=== PATIENT | female | born 1965 | race African-American/Black ===

== ENCOUNTER 2018-09-23 10:18 | Inpatient (IN) | payer OTHER ==
--- NOTE | 2018-09-20 12:59 | Diagnostic Imaging Report ---
EXAM: XR CHEST 2 VIEWS DATE: 09/20/2018 12:35 PM INDICATION: Preoperative, left renal mass COMPARISON: None FINDINGS: Lines and Tubes: None Heart and Mediastinum: No acute cardiomediastinal findings. Lungs and Pleura: No significant pleural effusion, pneumothorax, or focal consolidation. Bones and Soft Tissues: No acute findings. IMPRESSION: 1. No acute cardiopulmonary findings. Signed by: Dr. Amadou Terry MD on 09/20/2018 12:56 PM
[2018-09-20 13:07] LABS: BASOPHILS # (AUTO) 0.1 (0.0-0.1); EOSINOPHILS # (AUTO) 0.5 (0.0-0.4); EOSINOPHILS % 7.4 % (0.0-6.0); HEMOGLOBIN 13.4 g/dL (12.0-16.0); LYMPHOCYTES # (AUTO) 2.2 (1.0-3.2); LYMPHOCYTES % 30.8 % (18.0-39.1); MEAN CORPUSCULAR HEMOGLOBIN 30.7 pg (28-32); MEAN CORPUSCULAR HGB CONC 32.7 g/dL (31-35); MEAN CORPUSCULAR VOLUME 93.8 fL (81-99); MONOCYTES # (AUTO) 0.7 (0.2-0.8); MONOCYTES % 9.2 % (4.4-11.3); NEUTROPHILS # (AUTO) 3.6 (2.1-6.9); NEUTROPHILS % 51.3 % (38.7-80.0); PLATELET COUNT 287 x10e3/uL (140-360); RED BLOOD COUNT 4.37 x10e6/uL (3.6-5.1); RED CELL DISTRIBUTION WIDTH 13.9 % (11.7-14.4)
[2018-09-20 13:48] LABS: ALANINE AMINOTRANSFERASE 15 IU/L (0-55); ALBUMIN 3.7 g/dL (3.5-5.0); ALKALINE PHOSPHATASE 90 IU/L (40-150); ANION GAP 12.1 mmol/L (8-16); BLOOD UREA NITROGEN 18 mg/dL (7-26); BUN/CREATININE RATIO 20 (6-25); CALCIUM 9.4 mg/dL (8.4-10.2); CARBON DIOXIDE 27 mmol/L (22-29); CHLORIDE 105 mmol/L (98-107); CREATININE, SERUM 0.91 mg/dL (0.57-1.11); EST GLOMERULAR FILTRATION RATE > 60 ML/MIN (60-); GLUCOSE 87 mg/dL (74-118); POTASSIUM 4.1 mmol/L (3.5-5.1); SODIUM 140 mmol/L (136-145)
[~2018-09-23] VITALS: Ht 172.7 cm; Wt 87.6 kg
--- OUTSIDE RECORDS SUMMARY | 2018-09-23 10:21 | XMS REPORT ---
Author Author [facility] Address Unknown Phone Unavailable Care Team Providers Care Sql Server Consultant Name Role Phone JOHN LEDEZMA Unavailable Unavailable Problems This patient has no known problems. Allergies, Adverse Reactions, Alerts This patient has no known allergies or adverse reactions. Medications This patient has no known medications. Results Test Description Test Time Test Comments Text Results Atomic Results Result Comments CHEST 2 VIEWS 2018-09-20 12:55:00 [facility] [address] [place] [address] Patient Name: MAULIK OZUNA MR #: [id number] : 1965 Age/Sex: 53/F Req #: [id number] Adm Physician: Ordered by: JOHN LEDEZMA MD Report #: [id number] Location: OR Room/Bed: Procedure: [id number] DX/CHEST 2 VIEWS Exam Date: 09/20/18 Exam Time: 1235 REPORT STATUS: Signed EXAM: XR CHEST 2 VIEWS DATE: 09/20/2018 12:35 PM INDICATION: Preoperative, left renal mass COMPARISON: None FINDINGS: Lines and Tubes: None Heart and Mediastinum: No acute cardiomediastinal findings. Lungs and Pleura: No significant pleural effusion, pneumothorax, or focal consolidation. Bones and Soft Tissues: No acute findings. IMPRESSION: 1. No acute cardiopulmonary findings. Signed by: Dr. Amadou Martell MD on 09/20/2018 12:56 PM Dictated By: AMADOU MARTELL MD [id number] Transcribed By: TEX on 09/20/18 1256 COPY TO: JOHN LEDEZMA MD
[2018-09-23] MEDS ORDERED: CEFAZOLIN SOD 1 GM/D5W 50ML 50 ML IV ONE (10:40)
[2018-09-23] MEDS ORDERED: ROCURONIUM BROMIDE 10 MG/ML 5ML VIAL ONE (14:23)
[2018-09-23] MEDS ORDERED: LIDOCAINE HCL 2% LOCAL INJ 5 ML SDV VIAL INJ ONE (14:23)
[2018-09-23] MEDS ORDERED: SEVOFLURANE INHAL SOLN 250 ML PEN BTL ONE (14:23)
[2018-09-23] MEDS ORDERED: ONDANSETRON HCL INJ 2 MG/ML VIAL ONE (14:23)
[2018-09-23] MEDS ORDERED: DEXAMETHASONE SOD PHOS INJ 4 MG/ML VIAL ONE (14:23)
[2018-09-23] MEDS ORDERED: PROPOFOL IV EMULSION 10 MG/ML 20 ML VIAL ONE (14:23)
[2018-09-23] MEDS ORDERED: ACETAMINOPHEN 1000 MG/100 ML IV ONE (14:23)
[2018-09-23] MEDS ORDERED: ACETAMINOPHEN 1000 MG/100 ML IV PRN (15:30)
[2018-09-23] MEDS ORDERED: MORPHINE SULFATE 1 MG/ML 30ML PCA IV PRN (15:30)
[2018-09-23] MEDS ORDERED: DIPHENHYDRAMINE HCL INJ 50 MG/ML VIAL IM PRN (15:30)
[2018-09-23] MEDS ORDERED: NALOXONE HCL INJ 0.4 MG/ML AMP IV PRN (15:30)
[2018-09-23] MEDS ORDERED: FENTANYL CITRATE/PF 100MCG/2 ML INJ ONE (16:10)
--- NOTE | 2018-09-23 16:22 | Diagnostic Imaging Report ---
EXAM: XR CHEST 2 VIEWS DATE: 09/23/2018 3:21 PM INDICATION: Left renal mass. Rule out pneumothorax. COMPARISON: 09/20/2018. FINDINGS: Lines and Tubes: Left thoracostomy tube with its tip projected on the left apex. Heart and Mediastinum: The cardiac silhouette is mildly enlarged. Mild prominence of the pulmonary hilum bilaterally; these findings may be part related to suboptimal inflation, however, cannot exclude mild pulmonary venous congestion.. Bibasilar subsegmental atelectasis. Lungs and Pleura: Mild lucency in the left apex is nonspecific, however, could represent a tiny apical pneumothorax. Small left pleural effusion. No focal consolidation. Bones and Soft Tissues: No acute findings. IMPRESSION: 1. Questionable tiny left apical pneumothorax. Recommend attention on future follow-up. 2. Small left pleural effusion and bibasilar subsegmental atelectasis. 3. Mild pulmonary venous congestion. Signed by: Dr. Raymundo De Leon M.D. on 09/23/2018 4:19 PM
[2018-09-23] MEDS ORDERED: MORPHINE SULFATE 1 MG/ML 30ML PCA ONE (16:33)
[2018-09-23] MEDS ORDERED: MORPHINE SULFATE INJ 4 MG/ML INJ ONE (17:38)
[2018-09-23 18:27] VITALS: BP 134/92
[2018-09-23 18:31] VITALS: BP 134/92
--- NOTE | 2018-09-23 19:20 | NUR ---
RECEIVED REPORT FROM GARY PULIDO, AT PT'S BEDSIDE, PT RESTING WELL WITH EYES CLOSED, BREATHING EVEN AND UNLABORED, PT'S DAUGHTER AT BEDSIDE ON PHONE HOWEVER, ASK QUESTIONS REGARDING WHEN WILL PHYSICIANS ARRIVE AND MAKE THERE ROUNDS, INFORMED HER UNSURE HOWEVER SOMEONE FROM FAMILY CAN TAKE TURNS STAYING WITH PT, DAUGHTER STATES THAT WILL BE OK.
--- NOTE | 2018-09-23 19:20 | NUR ---
RECEIVED REPORT FROM GARY PULIDO AT PT'S BEDSIDE. DAUGHTER AWAKE IN ROOM ON PHONE HOWEVER DOES ASK QUESTIONS REGARDING WHEN DOES DR'S ARRIVE IN THE MORNING. INFORMED PT UNAWARE
[2018-09-23 19:47] VITALS: BP 122/74
[2018-09-23 20:00] VITALS: BP 122/74
[2018-09-23] MEDS: CEFAZOLIN SOD 1 GM/D5W 50ML 50 ML IV SCH (20:47)
[2018-09-23] MEDS: D5.45%NS/KCL 20MEQ 1,000 ML IV SCH (20:48)
[2018-09-23] MEDS: SODIUM CHLORIDE 0.9% 250ML IRRIG IR SCH (20:48)
[2018-09-24] VITALS (18 sets, daily range): BP systolic 92–120; BP diastolic 60–82
[2018-09-24] MEDS: SODIUM CHLORIDE 0.9% 250ML IRRIG IR SCH ×7 (00:35→22:00)
--- NOTE | 2018-09-24 02:00 | NUR ---
REPOSITIONING PT DURING THE NIGHT, SISTER AT BEDSIDE. NO QUESTIONS OR CONCERNS ASKED.
[2018-09-24] MEDS: CEFAZOLIN SOD 1 GM/D5W 50ML 50 ML IV SCH ×3 (04:13→20:52)
[2018-09-24] MEDS ORDERED: LACTATED RINGER'S 1,000 ML ONE (05:16)
[2018-09-24 05:22] LABS: BASOPHILS % 0.1 % (0.0-1.0); EOSINOPHILS % 0.2 % (0.0-6.0); HEMOGLOBIN 11.3 g/dL (12.0-16.0); LYMPHOCYTES # (AUTO) 1.3 (1.0-3.2); LYMPHOCYTES % 12.5 % (18.0-39.1); MEAN CORPUSCULAR HEMOGLOBIN 30.5 pg (28-32); MEAN CORPUSCULAR HGB CONC 32.3 g/dL (31-35); MEAN CORPUSCULAR VOLUME 94.3 fL (81-99); MONOCYTES % 9.2 % (4.4-11.3); NEUTROPHILS % 77.6 % (38.7-80.0); PLATELET COUNT 234 x10e3/uL (140-360); RED BLOOD COUNT 3.71 x10e6/uL (3.6-5.1); RED CELL DISTRIBUTION WIDTH 13.8 % (11.7-14.4)
[2018-09-24] MEDS: D5.45%NS/KCL 20MEQ 1,000 ML IV SCH ×3 (05:30→12:45)
--- NOTE | 2018-09-24 05:30 | NUR ---
PT RESTING WELL WITH EYES CLOSED EASY TO AWAKEN WITH VERBAL STIMULI, PT TATES COMFORTABLE PAIN LEVEL IS #3, SHE STATES ASLONG SHE DOESNT MOVE SHE DOESNT HURT. INFORMED HER SHE HAS TO BE REPOSITIONED EVERY 2 HRS TO REDUCE RISK OF SKIN BREAKDOWN SISTER JOSSELIN AWAKE AND AT BEDSIDE.
[2018-09-24 05:39] LABS: ANION GAP 13.9 mmol/L (8-16); CALCIUM 8.2 mg/dL (8.4-10.2); CREATININE, SERUM 1.5 mg/dL (0.57-1.11); POTASSIUM 4.9 mmol/L (3.5-5.1)
--- NOTE | 2018-09-24 05:59 | Diagnostic Imaging Report ---
EXAM: CHEST SINGLE (PORTABLE), AP 1 view INDICATION: Chest tube COMPARISON: AP view of the chest September 23, 2018 FINDINGS: LINES/TUBES: Stable nasal/orogastric tube and left chest tube. LUNGS: Stable left lower lobe atelectasis and vascular congestion. PLEURA: No effusions or pneumothorax. HEART AND MEDIASTINUM: Stable appearance. BONES AND SOFT TISSUES: Surgical changes of left kidney surgery IMPRESSION: Stable appearance of the chest. No pneumothorax. Signed by: Dr. Nolvia Nair M.D. on 09/24/2018 5:56 AM
--- NOTE | 2018-09-24 07:30 | NUR ---
REPORTED OFF TO JANAK RN DEGREASING SOLUTION MIXER MACHINE CHECKED, PT STABLE, SISTER JOSSELIN REMAINS AT BEDSIDE.
[2018-09-24] MEDS: ONDANSETRON HCL INJ 2 MG/ML VIAL IV PRN (11:09)
--- NOTE | 2018-09-24 13:37 | Consultation ---
DATE OF CONSULTATION: PULMONARY CONSULTATION PATIENT OF: Dr. Ottoniel Escobar. HPI: A charming, but unfortunate 53-year-old woman with family history of breast cancer and renal cancer, patient of Dr. Cordero. Apparently had a organ blood test, presumably CEA, which was positive. CT scan revealed a left renal mass, 9 cm in diameter. She underwent nephrectomy on the . She is usually healthy, though she had a lumpectomy in 2014, did not require chemotherapy or radiation. She has had hysterectomy in the past. ALLERGIES: NO KNOWN ALLERGIES. MEDICATIONS: No regular medications. SOCIAL HISTORY: Works in the [employer] industry. FAMILY HISTORY: Cancers were present in aunts and uncles. PHYSICAL EXAMINATION: GENERAL: Well-developed black female in no acute distress, looking stated age. NG tube is in place, chest tube, and left ARUN drain. No obvious air leak. VITAL SIGNS: Temperature 96.9, respirations 18, blood pressure 101/68. HEENT: Head, normocephalic, atraumatic. Eyes; extraocular movements are intact. LUNGS: Diminished breath sounds. HEART: Regular rhythm. ABDOMEN: Surgical wound. EXTREMITIES: Nonedematous. LABORATORY DATA: Creatinine 1.5. PLAN: Plan is for IV fluids. Planned chest tube tonight, discontinue in a.m. if no pneumothorax. Early mobilization. Thank you for this kind referral. Job#: [id number]
[2018-09-24] MEDS ORDERED: MORPHINE SULFATE 1 MG/ML 30ML PCA IV PRN (14:15)
[2018-09-24 16:12] LABS: CREATINE KINASE MB 5.4 ng/mL (0-5.0)
--- NOTE | 2018-09-24 18:03 | NUR ---
MD Leyva notified of pt's CP and elevated troponin, states that no further orders are needed and that he will see pt in AM
[2018-09-24] MEDS ORDERED: ACETAMINOPHEN 1000 MG/100 ML IV PRN (21:30)
--- NOTE | 2018-09-24 21:45 | NUR ---
TEMPERATURE 101.3, PATIENT IS MOSTLY DROWSY AND ASLEEP BUT SHE'S EASY TO AROUSE. TYLENOL ADMINISTERED FOR ELEVATED TEMPERATURE, PATIENT REPOSITION FOR COMFORT AND HEAD OF BED ELEVATED. NG TUBE AND CHEST TUBE PATENT AND INTACT, DRESSING DRY AND INTACT TO THE LEFT FLANK AREA. BED ALARM ON, CALL LIGHT WITHIN EASY REACH.
--- NOTE | 2018-09-24 23:43 | NUR ---
PATIENT ENCOURAGED TO USE THE INCENTIVE SPIROMETRY, SHE ONLY WENT HIGH 500. REPOSITION FOR COMFORT, NO RESPIRATORY DISTRESS OBSERVED.
--- NOTE | 2018-09-25 00:08 | NUR ---
CHEST TUBE CLAMPED ORDERED, OXYGEN SATURATION 97% ON 3L/NC. NO RESPIRATORY DISTRESS OBSERVED, WILL MONITOR CLOSELY FOR ANY RESPIRATORY DISTRESS.
[2018-09-25 00:40] VITALS: BP 114/75
[2018-09-25] MEDS: SODIUM CHLORIDE 0.9% 250ML IRRIG IR SCH ×4 (02:00→14:00)
--- NOTE | 2018-09-25 02:26 | NUR ---
NO RESPIRATORY DISTRESS OBSERVED, PATIENT REPOSITION FOR COMFORT. SHE C/O PAIN, EDUCATED TO USE THE PAIN PUMP DIRECTED.
[2018-09-25 04:25] VITALS: BP 110/73
[2018-09-25] MEDS: CEFAZOLIN SOD 1 GM/D5W 50ML 50 ML IV SCH ×3 (05:33→19:54)
[2018-09-25 05:46] LABS: CREATINE KINASE MB 2.2 ng/mL (0-5.0)
--- NOTE | 2018-09-25 06:44 | Diagnostic Imaging Report ---
EXAM: CHEST SINGLE (PORTABLE), AP 1 view INDICATION: Chest tube COMPARISON: AP view of the chest September 24, 2018 FINDINGS: LINES/TUBES: Stable nasal/orogastric tube and left chest tube. LUNGS: Bibasilar atelectasis and vascular congestion PLEURA: Trace left apical pneumothorax. Trace left pleural effusion. HEART AND MEDIASTINUM: Stable BONES AND SOFT TISSUES: No acute findings. IMPRESSION: Trace left apical pneumothorax. Left chest tube in place. Signed by: Dr. Nolvia Nair M.D. on 09/25/2018 6:41 AM
[2018-09-25 08:05] LABS: BASOPHILS % 0.1 % (0.0-1.0); EOSINOPHILS % 0.3 % (0.0-6.0); HEMATOCRIT 37.5 % (34.2-44.1); HEMOGLOBIN 12.2 g/dL (12.0-16.0); LYMPHOCYTES # (AUTO) 0.8 (1.0-3.2); LYMPHOCYTES % 7.4 % (18.0-39.1); MEAN CORPUSCULAR HEMOGLOBIN 30.7 pg (28-32); MEAN CORPUSCULAR HGB CONC 32.5 g/dL (31-35); MEAN CORPUSCULAR VOLUME 94.5 fL (81-99); MONOCYTES # (AUTO) 0.9 (0.2-0.8); NEUTROPHILS # (AUTO) 9.4 (2.1-6.9); NEUTROPHILS % 83.8 % (38.7-80.0); PLATELET COUNT 222 x10e3/uL (140-360); RED BLOOD COUNT 3.97 x10e6/uL (3.6-5.1); RED CELL DISTRIBUTION WIDTH 13.7 % (11.7-14.4)
[2018-09-25 08:13] LABS: ANION GAP 13.2 mmol/L (8-16); CALCIUM 8.9 mg/dL (8.4-10.2); CREATININE, SERUM 1.65 mg/dL (0.57-1.11); POTASSIUM 4.2 mmol/L (3.5-5.1)
[2018-09-25 08:45] VITALS: BP 120/85
--- NOTE | 2018-09-25 08:45 | NUR ---
pt received lying in bed, lethargic, oriented x3, no c/o at present. In no apparent resp distress. left chest tube in place, clamped since midnight. assessment complete, vss. assisted to edge of bed, discussed plan for increased activity d/t low grade fever and risk for developing post-surgical pneumonia.
[2018-09-25] MEDS: SODIUM CHLORIDE 0.9% 1000ML 1,000 ML IV SCH ×3 (09:05→19:54)
--- NOTE | 2018-09-25 10:37 | NUR ---
LEFT CHEST TUBE REMOVED BY DR WHITNEY PT TOLERATED WELL. CONTINUES MORPHINE WOODWORKING SHOP LABORER
[2018-09-25 12:30] VITALS: BP 116/83
--- NOTE | 2018-09-25 14:23 | Diagnostic Imaging Report ---
EXAM: CHEST SINGLE (PORTABLE), AP Portable DATE: 09/25/2018Time stamp on exam: 1:12 PM INDICATION: Chest tube removal COMPARISON: 09/25/2018 at 5:47 AM FINDINGS: LINES/TUBES: Nasogastric tube is present with its tip below the diaphragm. Left-sided chest tube has been removed. LUNGS: No change in the pulmonary vascular congestion and areas of bibasilar atelectasis. PLEURA: Trace left apical pneumothorax again noted. HEART AND MEDIASTINUM: Normal size and contour. BONES AND SOFT TISSUES: No acute findings. IMPRESSION: No significant interval change. Signed by: Dr. Frantz Cedeño DO on 09/25/2018 2:20 PM
--- NOTE | 2018-09-25 15:18 | NUR ---
ngt removed per dr dsouza, pt tolerated well. observed i.s. usage and provided additional guidance and importance
--- NOTE | 2018-09-25 16:02 | NUR ---
Commercial Lending Vice President to bedside to discuss plan of care with patient/family. CM/SW role and care transitions discussed. Anticipated discharge plan discussed along with duration of care. CM/SW discussed patients right to make decisions in care. CM/SW work hours given. Patient lives: PATIENT LIVES IN 1ST FLOOR APARTMENT WITH IN [place], [place] Admit/Transfer: ED POA/Emergency contact: - [phone]/ DAUGHTER AGUSTIN RUBIO [phone] Current/Previous Home Health: NONE PCP/Follow-up Care: NONE; PATIENT EDUCATED ON IMPORTANCE OF GETTING PCP FOR HEALTH PREVENTION AND YEARLY CHECK UPS Current/Previous DME: NONE Other Services: NONE Employment Status: EMPLOYED Areas of Concerns: NONE AT THIS TIME Referral Needs: POSSIBLE HOME HEALTH Education Needs: NONE IMM/BAUTISTA given and signed (if applicable): NO Goal for discharge: PATIENT'S GOAL IS TO RETURN HOME INDEPENDENTLY WITH NO NEEDS CM left business card at the bedside with contact information. Name and number was also written on the patients whiteboard. Patient verbalized understanding of discussion. CM will follow-up with ongoing discharge and transition of care needs.
[2018-09-25 16:30] VITALS: BP 111/79
--- NOTE | 2018-09-25 18:32 | NUR ---
PT ASSISTED OOB TO BEDSIDE CHAIR, TOLERATED WELL
[2018-09-25 19:57] VITALS: BP 110/76
--- NOTE | 2018-09-25 20:00 | NUR ---
Received change of shift report from AM nurse. Walking rounds completed.
--- NOTE | 2018-09-25 21:00 | NUR ---
Patient up sitting in chair. C/O pain =4. Encouraged to do IS. Patient on IS not getting good breaths. Patient informed to breath deeper to expand lungs. Patient verbalized understanding but still not improving her breathing. IV intact to l side and right side. Nieves to bedside drainage. 400cc of meg colored urine. O2 at 1L with sat at 97-99%.
[2018-09-26] VITALS (10 sets, daily range): BP systolic 108–141; BP diastolic 63–95
--- NOTE | 2018-09-26 02:24 | NUR ---
Patient resting quitly in bed. No noted distress or discomfort at this time. Encouraged turning. Dressing to left side dry and intact. ARUN drain draining small amount of pink fluid.
[2018-09-26] MEDS: CEFAZOLIN SOD 1 GM/D5W 50ML 50 ML IV SCH ×3 (04:00→20:30)
[2018-09-26 05:05] LABS: BASOPHILS % 0.3 % (0.0-1.0); EOSINOPHILS # (AUTO) 0.1 (0.0-0.4); EOSINOPHILS % 0.9 % (0.0-6.0); HEMATOCRIT 34.9 % (34.2-44.1); HEMOGLOBIN 11.3 g/dL (12.0-16.0); LYMPHOCYTES # (AUTO) 1.3 (1.0-3.2); LYMPHOCYTES % 11.4 % (18.0-39.1); MEAN CORPUSCULAR HEMOGLOBIN 30.3 pg (28-32); MEAN CORPUSCULAR HGB CONC 32.4 g/dL (31-35); MEAN CORPUSCULAR VOLUME 93.6 fL (81-99); MONOCYTES % 8.5 % (4.4-11.3); NEUTROPHILS # (AUTO) 9.2 (2.1-6.9); NEUTROPHILS % 78.4 % (38.7-80.0); PLATELET COUNT 204 x10e3/uL (140-360); RED BLOOD COUNT 3.73 x10e6/uL (3.6-5.1); RED CELL DISTRIBUTION WIDTH 13.4 % (11.7-14.4)
[2018-09-26 05:24] LABS: ANION GAP 14.1 mmol/L (8-16); CREATININE, SERUM 1.4 mg/dL (0.57-1.11); POTASSIUM 4.1 mmol/L (3.5-5.1)
--- NOTE | 2018-09-26 06:40 | NUR ---
Catheter care done. Patient tolerated well. IS a little stronger each time. Patient states "I have no pain". Patient repositioned in bed. Patient states" I am comfortable. Continue monitor.
--- NOTE | 2018-09-26 06:41 | Diagnostic Imaging Report ---
EXAM: CHEST SINGLE (PORTABLE), AP 1 view INDICATION: No longer has chest tube COMPARISON: AP view of the chest September 25, 2018 FINDINGS: LINES/TUBES: None LUNGS: Scattered atelectatic changes predominantly in the left lung base. PLEURA: Trace left pleural effusion. Left pneumothorax no longer visualized. HEART AND MEDIASTINUM: Stable appearance BONES AND SOFT TISSUES: Partially visualized surgical changes related to kidney surgery IMPRESSION: Left pneumothorax no longer visualized. Signed by: Dr. Nolvia Nair M.D. on 09/26/2018 6:38 AM
--- NOTE | 2018-09-26 06:58 | NUR ---
Shift report given to AM nurse. Walking rounds completed.
[2018-09-26] MEDS ORDERED: BISACODYL 10 MG SUPP PR PRN (07:30)
--- NOTE | 2018-09-26 07:41 | NUR ---
Dr Escobar to bedside; okay for CLD and to transfer to Med Surg without telemetry. Up walking in [place] with PT presently. BILLING DEPARTMENT SUPERVISOR discontinued per order.
[2018-09-26] MEDS ORDERED: BISACODYL 10 MG SUPP PR NR (08:00)
[2018-09-26] MEDS: DOCUSATE SODIUM 100 MG CAP PO SCH ×2 (08:02→17:20)
[2018-09-26] MEDS: ONDANSETRON HCL INJ 2 MG/ML VIAL IV PRN (08:03)
[2018-09-26] MEDS: SODIUM CHLORIDE 0.9% 1000ML 1,000 ML IV SCH (08:03)
[2018-09-26] MEDS: ACETAMINOPHEN/CODEINE 300MG - 30MG TAB PO PRN ×2 (08:03→18:02)
[2018-09-26] MEDS ORDERED: ONDANSETRON HCL INJ 2 MG/ML VIAL IV PRN (09:00)
--- NOTE | 2018-09-26 14:30 | NUR ---
Report given to TESS Oneil. Pt transferred to room 110 via wheelchair.
--- NOTE | 2018-09-26 14:39 | NUR ---
received to rm aaox3 no distress noted, updated on poc voiced understanding, denies pain at this time, oriented to rm, no other co voiced call light in reach will continue to monitor
--- NOTE | 2018-09-26 14:45 | NUR ---
RECEIVED TO RM AAOX3 NO DISTRESS NOTED, JESUSITA TO LEFT SIDE INTACT, DENIES PAIN AT THIS TIME, ORIENTED TO RM, CALL LIGHT IN REACH WILL CONTINUE TO MONITOR
--- NOTE | 2018-09-26 16:02 | NUR ---
PATIENT HUMZA PHYSIOTHERAPIST'S ASSISTANT TO ASSIST WITH DISCHARGE PLANNING: DION: (P)[phone] (F)[phone] Addendum: 09/26/18 at 1604 by Hazel Bedoya CM EXT. [id number]
--- NOTE | 2018-09-26 19:00 | NUR ---
REPORT RECEIVED FROM OFF GOING NURSE, PT RESTING IN BED ALERT AND ORIENTED, NO DISTRESS NOTED, O2 NC WORN, HOB ELEVATED, INDWELLING CHAVARRIA NOTED AND PATENT, INCISION TO LEFT ABD WITH NO COMPLICATIONS NOTED, NO DRAINAGE NOTED, ARUN DRAIN NOTED AND EMPTIED, BED LOCKED AND LOW, PT DENIES NEEDS, CALL LIGHT IN REACH, INSTRUCTED TO CALL WITH NEEDS
[2018-09-26] MEDS ORDERED: SODIUM CHLORIDE 0.9% 250ML 250 ML ONE (20:21)
[2018-09-27] VITALS (7 sets, daily range): BP systolic 92–111; BP diastolic 55–71
[2018-09-27] MEDS: CEFAZOLIN SOD 1 GM/D5W 50ML 50 ML IV SCH ×3 (04:00→20:10)
--- NOTE | 2018-09-27 05:09 | NUR ---
PT RESTING IN BED ALERT AND ORIENTED, NO DISTRESS NOTED, DENIES PAIN, INCISION TO LEFT ABD C/D/I WITH EDGES APPROXIMATED, NO COMPLICATIONS NOTED, ARUN IN PLACE WITH NO COMPLICATIONS AND NO OUT PUT NOTED, CALL LIGHT IN REACH, PT INSTRUCTED TO CALL WITH NEEDS, INDWELLING CHAVARRIA PATENT TO BEDSIDE
[2018-09-27] MEDS: ACETAMINOPHEN/CODEINE 300MG - 30MG TAB PO PRN ×3 (05:52→17:27)
--- NOTE | 2018-09-27 07:00 | NUR ---
SHIFT REPORT RECEIVED FROM NIGHT RN. PT DENIES NEEDS AT THIS TIME.
--- NOTE | 2018-09-27 07:29 | Diagnostic Imaging Report ---
EXAM: CHEST 2 VIEWS COMPARISON: Chest radiograph 09/26/18. FINDINGS: LINES/TUBES: None LUNGS: Persistent patchy left basilar and right perihilar opacity. PLEURA: Trace left pleural effusion. No evidence of residual pneumothorax. HEART AND MEDIASTINUM: The cardiomediastinal silhouette is unchanged. BONES AND SOFT TISSUES: No acute bony findings. IMPRESSION: No evidence of residual pneumothorax. Persistent patchy left basilar and right perihilar opacities, likely atelectasis. Signed by: Dr. Cornelia Ospina MD on 09/27/2018 7:26 AM
[2018-09-27] MEDS: DOCUSATE SODIUM 100 MG CAP PO SCH ×2 (08:52→17:27)
[2018-09-27 12:56] LABS: BASOPHILS % 0.2 % (0.0-1.0); EOSINOPHILS # (AUTO) 0.3 (0.0-0.4); HEMATOCRIT 36.2 % (34.2-44.1); HEMOGLOBIN 11.9 g/dL (12.0-16.0); LYMPHOCYTES # (AUTO) 1.4 (1.0-3.2); LYMPHOCYTES % 14.8 % (18.0-39.1); MEAN CORPUSCULAR HEMOGLOBIN 30.1 pg (28-32); MEAN CORPUSCULAR HGB CONC 32.9 g/dL (31-35); MEAN CORPUSCULAR VOLUME 91.6 fL (81-99); MONOCYTES # (AUTO) 0.8 (0.2-0.8); MONOCYTES % 7.8 % (4.4-11.3); NEUTROPHILS # (AUTO) 7.1 (2.1-6.9); NEUTROPHILS % 73.9 % (38.7-80.0); PLATELET COUNT 282 x10e3/uL (140-360); RED BLOOD COUNT 3.95 x10e6/uL (3.6-5.1)
[2018-09-27 13:12] LABS: ANION GAP 13.8 mmol/L (8-16); CALCIUM 9.5 mg/dL (8.4-10.2); CREATININE, SERUM 1.47 mg/dL (0.57-1.11); POTASSIUM 3.8 mmol/L (3.5-5.1)
--- NOTE | 2018-09-27 19:10 | NUR ---
REPORT RECEIVED FROM OFF GOING NURSE, PT RESTING IN BED ALERT AND ORIENTED, NO DISTRESS NOTED, DENIES NEEDS, INDWELLING CHAVARRIA NOTED AND PATENT, CALL LIGHT IN REACH, INSTRUCTED TO CALL WITH NEEDS
[2018-09-28] VITALS (8 sets, daily range): BP systolic 95–171; BP diastolic 58–65
[2018-09-28] MEDS: ACETAMINOPHEN/CODEINE 300MG - 30MG TAB PO PRN ×3 (00:40→20:45)
[2018-09-28] MEDS: CEFAZOLIN SOD 1 GM/D5W 50ML 50 ML IV SCH ×2 (04:30→12:22)
--- NOTE | 2018-09-28 05:31 | NUR ---
PT RESTING IN BED WITH EYES CLOSED, HOB ELEVATED, O2 NC WORN, OPENS EYES UPON APPROACH, NO DISTRESS NOTED, DENIES NEEDS, ARUN DRAIN BULB COMPRESSED AND IN PLACE, NO COMPLICATIONS NOTED, INDWELLING CHAVARRIA NOTED AND PATENT, CALL LIGHT IN REACH, INSTRUCTED TO CALL WITH NEEDS
--- NOTE | 2018-09-28 07:00 | NUR ---
SHIFT REPORT RECEIVED FROM NIGHT RN. PT DENIES NEEDS AT THIS TIME.
[2018-09-28] MEDS: DOCUSATE SODIUM 100 MG CAP PO SCH ×2 (09:04→17:02)
--- NOTE | 2018-09-28 12:53 | NUR ---
Nutrition Screen Note RD Recommendation for Physician: Continue diet as ordered Plan of Care: RD following, monitoring for adequacy and tolerance Nutrition reason for involvement: LOS Primary Diagnose(s):Left renal mass Ht:68 in Wt:196.56lbs BMI:29.3 kg/m2 IBW:140lbs RD Assessment:09/28/2018 Initial encounter with patient. Pt dose not have her upper teeth and requested softer foods like mashed potatoes. Informed the kitchen to send mashed potatoes. Pt eats well and denies Nausea, vomiting and diarrhea. No known food allergies Current Diet: Regular diet Malnutrition Evaluation (09/28/2018) The patient does not meet criteria for a specified degree of malnutrition at this time. Will re-evaluate at follow-up as appropriate. Diet Education Needs Assessment: Diet education not indicated. Diet Adequacy: Meeting calorie needs, Meeting protein needs, Meeting fluid needs Tolerance: Tolerating PO Nutrition Care Level:Bebeto Marx RD, LD, CNSC
--- NOTE | 2018-09-28 13:00 | NUR ---
PT HAS VOIDED SINCE CHAVARRIA REMOVAL. PT'S ARUN DRAIN PULLED AND DRESSING PLACED. TIP INTACT WITH 5ML DRAINAGE. PT TOLERATED.
--- NOTE | 2018-09-28 13:42 | Diagnostic Imaging Report ---
EXAM: CHEST 2 VIEWS COMPARISON: Chest radiograph 09/26/18. FINDINGS: LINES/TUBES: None LUNGS: Slightly improved left basilar and right perihilar opacity. PLEURA: Trace left pleural effusion. No evidence of residual pneumothorax. HEART AND MEDIASTINUM: The cardiomediastinal silhouette is unchanged. BONES AND SOFT TISSUES: No acute bony findings. Dextroconvex curvature of the thoracic spine. UPPER ABDOMEN: Partially seen post surgical changes involving the abdomen. Large air-fluid level in the stomach. IMPRESSION: No evidence of residual pneumothorax. Slightly improved patchy left basilar and right perihilar opacities, likely atelectasis. Large air-fluid level seen in the stomach. Signed by: Dr. Cornelia Ospina MD on 09/28/2018 1:39 PM
[2018-09-28] MEDS: PIPERACILLIN/TAZO 2.25 GM 50 ML IV SCH ×2 (14:09→21:12)
--- NOTE | 2018-09-28 19:05 | NUR ---
REPORT RECEIVED FROM OFF GOING NURSE, PT RESTING IN BED ALERT AND ORIENTED ,NO DISTRESS NOTED, DENIES NEEDS, CALL LIGHT IN REACH, INSTRUCTED TO CALL WITH NEEDS
[2018-09-29] VITALS: BP 107/62
[2018-09-29] MEDS: ACETAMINOPHEN/CODEINE 300MG - 30MG TAB PO PRN (05:35)
[2018-09-29] MEDS: PIPERACILLIN/TAZO 2.25 GM 50 ML IV SCH ×2 (05:35→13:50)
--- NOTE | 2018-09-29 05:36 | NUR ---
PT RESTING IN BED ALERT AND ORIENTED, NO DISTRESS NOTED, DENIES NEEDS, NO COMPLICATIONS NOTED, TO INCISION, NO DRAINAGE NOTED, CALL LIGHT IN REACH, INSTRUCTED TO CALL WITH NEEDS
--- NOTE | 2018-09-29 07:00 | NUR ---
SHIFT REPORT RECEIVED FROM NIGHT RN. PT DENIES NEEDS AT THIS TIME.
[2018-09-29 07:31] LABS: BASOPHILS % 0.5 % (0.0-1.0); EOSINOPHILS # (AUTO) 0.5 (0.0-0.4); EOSINOPHILS % 5.7 % (0.0-6.0); HEMATOCRIT 34.6 % (34.2-44.1); HEMOGLOBIN 11.7 g/dL (12.0-16.0); LYMPHOCYTES # (AUTO) 1.8 (1.0-3.2); LYMPHOCYTES % 21.7 % (18.0-39.1); MEAN CORPUSCULAR HEMOGLOBIN 30.9 pg (28-32); MEAN CORPUSCULAR HGB CONC 33.8 g/dL (31-35); MEAN CORPUSCULAR VOLUME 91.3 fL (81-99); MONOCYTES # (AUTO) 0.9 (0.2-0.8); MONOCYTES % 10.5 % (4.4-11.3); NEUTROPHILS % 61.1 % (38.7-80.0); PLATELET COUNT 314 x10e3/uL (140-360); RED BLOOD COUNT 3.79 x10e6/uL (3.6-5.1)
[2018-09-29 07:45] LABS: ANION GAP 14.7 mmol/L (8-16); CALCIUM 9.4 mg/dL (8.4-10.2); CREATININE, SERUM 1.53 mg/dL (0.57-1.11); POTASSIUM 3.7 mmol/L (3.5-5.1)
[2018-09-29 08:00] VITALS: BP 107/62
[2018-09-29 08:33] VITALS: BP 97/59
[2018-09-29] MEDS: DOCUSATE SODIUM 100 MG CAP PO SCH (08:59)
[2018-09-29 12:25] VITALS: BP 94/64
--- NOTE | 2018-09-29 16:25 | NUR ---
CLEARED BY DR. SPEARS AND DR. CHRISTIAN TO DISCHARGE HOME.
[2018-09-29 16:29] VITALS: BP 94/54
[2018-09-29] MEDS ORDERED: TYLENOL WITH C1 EACH PO (16:33)
[2018-09-29] MEDS ORDERED: COLACE100 MG PO (16:34)
[2018-09-29] MEDS ORDERED: LEVAQUIN500 MG PO (16:35)
--- NOTE | 2018-09-29 17:00 | NUR ---
PT'S IV DC'D WITH TIP INTACT, BLEEDING STOPPED AND DRESSING PLACED. PT GIVEN STAPLE REMOVER TO TAKE TO DR. KAY IN TWO WEEKS. PT STATES UNDERSTANDING DISCHARGE INFORMATION. PT DENIES FURTHER NEEDS.
--- NOTE | 2018-10-08 01:38 | Operative Report ---
DATE OF PROCEDURE: September 23, 2018 PREOPERATIVE DIAGNOSIS: Very large left renal mass consistent with renal cell carcinoma. POSTOPERATIVE DIAGNOSES: 1. Very large left renal mass consistent with renal cell carcinoma. 2. Intentional pneumothorax. OPERATIONS PERFORMED: 1. Left thoracotomy as part of performing a thoracoabdominal incision for adequate exploration for renal cancer. 2. Complicated left radical nephrectomy, made complicated by the very large tumor and its surrounding reaction. 3. Tube thoracostomy through a separate incision. 4. Pelvic examination under anesthesia. ANESTHESIA: General. FASHION EDITOR: Dr. Ninfa Escobar MD COMPLICATIONS: None. CLINICAL SUMMARY: Cece Richardson is a 53-year-old woman who was found to have a very large left renal mass. The patient was evaluated and we recommended to proceed with surgery as planned. She is aware of the risks of bleeding, infection, injury to adjacent structures, incomplete cancer resection, need for additional procedures and/or additional treatments. She understood all these risks and she elected to proceed. OPERATIVE PROCEDURE IN DETAIL: Informed consent was verified. Cece Richardson was properly identified, taken to the operating room, and placed on the operating table in supine position. Anesthesia was uneventfully begun. The patient was then placed in frogleg position, and pelvic examination was performed revealing urethral hypermobility and atrophic vaginitis. The Nieves catheter was then placed with clear urine output obtained. There were no abnormal palpable pelvic masses that could be appreciated. There were no obvious mucosal lesions. The patient was then carefully and gently repositioned in the modified flank position with all pressure points very carefully well padded. She was carefully secured to the table. The patient's chest, abdomen, and back were prepared and draped in usual sterile fashion. A thoracoabdominal incision was then made. We incised the left abdominal wall and extended this incision into the left chest. We did not resect the rib. We cut the costal margin and split the diaphragm. Care was taken to avoid injury to the lung. We then utilized an extraperitoneal approach initially. We carefully isolated the kidney and it from nearby structures including the peritoneum region near the spleen and the tail of the pancreas. We are careful to avoid injury and damage to any surrounding organs. The patient's kidney and tumor were eventually isolated following very careful dissection. We then identified the renal artery, doubly ligated it on the patient's side with silk, doubly hemoclipped, and divided the artery. We then completed the remaining of the dissection. We cut across the ureter. We finished the medial dissection of the kidney. We then handled the gonadal vein by doubly ligating it and dividing it. We doubly ligated and divided the renal vein and this allowed the removal of the kidney and tumor from the field. Copious irrigation was performed. We verified hemostasis. Hemostasis was excellent. We then made a separate stab incision in the chest, created a tunnel, and then placed a tube thoracostomy through that tunnel. We placed a nylon U-stitch to able to tie that tunnel closed following tube thoracostomy removal. The diaphragm was approximated with Vicryl suture in running fashion. The costal margin was approximated with heavy Ethibond suture. The abdomen and chest were then closed in 2 layers utilizing a heavy Vicryl suture in interrupted [id number] fashion. We copiously irrigated through every layer of the closure. The final skin incision was approximated with skin marco. Sterile dressings were applied. The chest tube was secured with tape, and then the patient was uneventfully reversed from anesthesia and taken to recovery room in stable condition. There were no complications to the procedure. Patient tolerated the procedure well. Sponge, needle, and instrument counts were quoted as correct x2 at the end of the case. For estimated blood loss, please refer to the anesthetic record. We will proceed with routine postoperative care and of course ongoing urological followup. Job#: [id number]
== END 2018-09-29 17:10 | disposition home or self-care (01) | DRG 657 ==
LOC: OR 10:18 → IMCU 17:44 → MED/SURG 09-26 14:14
PROVIDERS: ADMIT Urology; ATTEND Urology
PROC: 0W9B30Z Drainage of Left Pleural Cavity with Drainage Device, Percutaneous Approach (ICD-10-PCS; 2018-09-23)
PROC: 0TT10ZZ Resection of Left Kidney, Open Approach (ICD-10-PCS; principal; 2018-09-23 12:30)
DX: C64.2 Malignant neoplasm of left kidney, except renal pelvis (principal); N17.9 Acute kidney failure, unspecified; E87.1 Hypo-osmolality and hyponatremia; N18.9 Chronic kidney disease, unspecified; N28.1 Cyst of kidney, acquired; N39.41 Urge incontinence; N36.41 Hypermobility of urethra; N95.2 Postmenopausal atrophic vaginitis; E83.51 Hypocalcemia; Z80.3 Family history of malignant neoplasm of breast; Z80.51 Family history of malignant neoplasm of kidney
CPT/HCPCS: 36415; 71045; 71046; 80048; 80053; 82550; 82553; 83735; 84484; 85025; 86850; 86900; 86920; 88307; 88309; 93005; 96367; 97139; J0690; J1100; J1200; J2001; J2270; J2405; J2543; J7030; J7050; J7120